=== PATIENT | male | born 1955 | race Caucasian/White ===

== ENCOUNTER 2021-11-09 08:17 | Outpatient (REF) | payer OTHER, SELFPAY ==
--- NOTE | ~2021-11-09 | FL_ITS ---
EXAMINATION: FL BARIUM SWALLOW CLINICAL INFORMATION: Dysphagia. COMPARISON: None. TECHNIQUE: Barium swallow examination is performed using fluoroscopic evaluation in addition to multiple fluoroscopic spot views. The patient is imaged both upright and prone and using both thick and thin sulfate along with effervescent granules. Fluoroscopy time: 2.0 minutes DAP: 14.615 Gycm2 Images: 55 FINDINGS: Following oral administration of thick barium in upright view and various positions, there is normal propagation of bolus from the oral cavity through the pharynx and esophagus and into the stomach without any evidence of obstruction, narrowing or stricture. On oral administration of barium-coated turkey, there is normal propagation of solid food from the oral cavity, esophagus and stomach. No intrinsic obstruction or extrinsic compression seen. On placing patient prone and oral administration of thin barium, there is good distention of the entire esophagus. There is no gastroesophageal reflux or hiatal hernia visualized. FL/FL barium swallow IMPRESSION: Unremarkable barium swallow exam in upright and lying positions.
== END 2021-11-09 08:18 | disposition home or self-care (01) ==
LOC: HO.XRAY 08:17
PROVIDERS: Visit Provider Internal Medicine Gastroenterology
DX: R13.10 Dysphagia, unspecified (principal)
CPT/HCPCS: 74220

== ENCOUNTER 2023-02-02 06:28 | Day surgery (SDC) | payer MEDICARE, SELFPAY ==
--- NOTE | 2023-02-01 08:51 | P.CONAN_ITS ---
Documented by User: Mariela Fried NP 02/01/23 09:03 HPI - Anesthesia Eval Consult details Narrative: 67yo M for Colonoscopy afib s/p rfa, no anticoag [facility] - Dr Toscano at [facility] Past Medical History Medical History (Updated 02/02/23 @ 06:40 by Lydia Coleman, RN) Atrial fibrillation Bilateral cataracts Elevated cholesterol HTN (hypertension) Pancolitis Ulcerative colitis Surgical History Surgical History (Updated 02/01/23 @ 06:27 by Lydia Coleman, RN) History of colonoscopy History of radiofrequency ablation procedure for cardiac arrhythmia Social History Social History Patient Tobacco Use Status: Former Tobacco user Use of substances other than those prescribed or required for medical reasons: No Are you DNR?: No Advance Directives: No Advance Directives Information Provided: Yes Recently lost weight without trying: No Nutrition Risks: No Nutritional Risk Meds Allergies Allergy/AdvReac Type Severity Reaction Status Date / Time atorvastatin [Lipitor] Allergy Unknown myalgias Verified 10/03/17 00:00 elevated CPK Home Medications Medication Instructions Recorded Confirmed Last Taken Type azathioprine 50 mg tablet 100 mg PO DAILY 02/01/23 02/02/23 Unknown History diltiazem HCl 180 mg 180 mg PO DAILY 02/01/23 02/02/23 Unknown History tablet,extended release 24 hr ([facility]) flecainide 100 mg tablet 200 mg PO DAILY PRN Atrial 02/01/23 02/02/23 Unknown History Fibrillation lisinopril 20 mg tablet 20 mg PO DAILY 02/01/23 02/02/23 Unknown History lorazepam 0.5 mg tablet 0.5 mg PO BEDTIME PRN Anxiety 02/01/23 02/02/23 Unknown History mesalamine 0.375 gram PO 02/01/23 Unknown History capsule,extended release 24 hr pravastatin 20 mg tablet 20 mg PO DAILY 02/01/23 02/02/23 02/02/23 History aspirin 81 mg tablet,delayed 81 mg PO DAILY 02/02/23 02/02/23 02/01/23 History release Exam Exam Date and Time: February 01, 2023 0851 Assessment and Plan Assessment Anesthesia Assessment: Chart Reviewed Documented by User: Ben Juarez MD 02/02/23 07:41 [facility] Past Medical History Medical History (Updated 02/02/23 @ 06:40 by Lydia Coleman RN) Atrial fibrillation Bilateral cataracts Elevated cholesterol HTN (hypertension) Pancolitis Ulcerative colitis Family History Family history of problems with anesthesia: No Surgical History Surgical History (Updated 02/01/23 @ 06:27 by Lydia Coleman RN) History of colonoscopy History of radiofrequency ablation procedure for cardiac arrhythmia History of Problems with Anesthesia: No Social History Social History Patient Tobacco Use Status: Former Tobacco user Use of substances other than those prescribed or required for medical reasons: No Are you DNR?: No Advance Directives: No Advance Directives Information Provided: Yes Recently lost weight without trying: No Nutrition Risks: No Nutritional Risk Meds Allergies Allergy/AdvReac Type Severity Reaction Status Date / Time atorvastatin [Lipitor] Allergy Unknown myalgias Verified 10/03/17 00:00 elevated CPK Home Medications Medication Instructions Recorded Confirmed Last Taken Type azathioprine 50 mg tablet 100 mg PO DAILY 02/01/23 02/02/23 Unknown History diltiazem HCl 180 mg 180 mg PO DAILY 02/01/23 02/02/23 Unknown History tablet,extended release 24 hr ([place]) flecainide 100 mg tablet 200 mg PO DAILY PRN Atrial 02/01/23 02/02/23 Unknown History Fibrillation lisinopril 20 mg tablet 20 mg PO DAILY 02/01/23 02/02/23 Unknown History lorazepam 0.5 mg tablet 0.5 mg PO BEDTIME PRN Anxiety 02/01/23 02/02/23 Unknown History mesalamine 0.375 gram PO 02/01/23 Unknown History capsule,extended release 24 hr pravastatin 20 mg tablet 20 mg PO DAILY 02/01/23 02/02/23 02/02/23 History aspirin 81 mg tablet,delayed 81 mg PO DAILY 02/02/23 02/02/23 02/01/23 History release Exam Airway Mallampati Class: I TM Dist: >3cm Neck ROM: Full Loose/Missing/Broken Teeth: Yes Heart: ok. afib, hr 108. Lungs: ok Assessment and Plan Assessment Anesthesia Assessment: Anesthesia Plan Discussed Final Anesthetic Review Family History of Problems with Anesthesia: No History of Problems with Anesthesia: No NPO: Yes ASA Class: III Final Preanesthetic Review: No Changes in Pt Med Stat, Meds/Allgs Chart Reviewed, Consent Obtained/Reviewed and Anes Risks/Benef Reviewed Patient Risk: Intermediate Procedure Risk: Low Anesthetic Plan Anesthetic Plan: MAC: and Agree w/ Assess. and Plan Disposition: Standard PACU
[2023-02-02 06:41] VITALS: BMI 27.1
[2023-02-02 06:49] VITALS: BP 159/96; PULSE 108; RESP 16; TEMP 36.1; O2SAT 98
[2023-02-02] MEDS: Lactated Ringers 1,000 ML 100 ML IVCONT (07:04)
--- NOTE | 2023-02-02 07:22 | MHC.SHP ---
Pre-Procedural Eval Section A Date of Service: 02/02/23 Section B Chief Complaint: Ulcerative (chronic) pancolitis without complicati Details of Present Illness: see H&P no changes Relevant Family History (Specify if Yes): No Relevant Social History: None Present Medications: see Short Stay Collaborative assessment Medical History: No relevant PMH History of Previous Operations: No relevant previous surgery Allergies: Allergies Allergy/AdvReac Type Severity Reaction Status Date / Time atorvastatin [Lipitor] Allergy Unknown myalgias Verified 10/03/17 00:00 elevated CPK Review of Systems Sugical H&P ROS: Negative: Constitution, Cardiovascular, Respiratory, Neurological, Psychiatric, Hem-Onc, Allergic/Immunologic, Gastrointestinal, Genitourinary, Musculoskeletal, Integumentary, Endocrine and Eyes/Ears/Nose/Throat Exam Surgical H&P Exam: Normal: HEENT, Normal: Heart, Normal: Lungs, Normal: Extremities, Normal: Abdomen, Normal: Skin and Normal: Neurological Plan Diagnosis/Plan: Unchanged I have reviewed the history and physical and performed a pertinent physical examination on my patient. No changes have occurred unless specified. Time Spent With Patient Time: Total time managing care of this patient today ____ minutes.
--- NOTE | 2023-02-02 07:26 | PC.NURSE ---
patient in afib stemp aware.
[2023-02-02 08:17] VITALS: BP 98/67; PULSE 93; RESP 18; TEMP 36.2; O2SAT 95
--- NOTE | 2023-02-02 08:20 | PM.OP ---
Brief Operative Note Date of Service: 02/02/23 Pre-op diagnosis: ulcerative colitis Post-op diagnosis: same Procedure: colonoscopy Surgeon: Issa Mayes Anesthesia: MAC Was an Assistant Auditor used for this Procedure?: No Estimated blood loss (mL): 5 Pathology: other Condition: stable Disposition: PACU
[2023-02-02 08:32] VITALS: BP 137/95; PULSE 95; RESP 18; TEMP 36.2; O2SAT 99
--- NOTE | 2023-02-02 13:28 | OP_ITS ---
DATE OF SERVICE: 02/02/2023 SURGEON: Issa Mayes MD INDICATIONS: Ulcerative colitis. PREOPERATIVE DIAGNOSIS: POSTOPERATIVE DIAGNOSIS: PROCEDURE PERFORMED: Colonoscopy to the cecum with biopsy. ESTIMATED BLOOD LOSS: COMPLICATIONS: ANESTHESIA: Monitored anesthesia care. ASSISTANTS: SPECIMENS: DESCRIPTION OF PROCEDURE: A history and physical was performed. The risks and benefits of the procedure were explained to the patient. Informed consent was obtained. The patient was placed in the left lateral decubitus position. A digital rectal exam was performed and was found to be normal. The Olympus pediatric video colonoscope was introduced into the rectum and advanced to the cecum without difficulty. The cecum was identified by transillumination, palpation, and identification of ileocecal valve. Examination was performed. The scope was removed. He tolerated the procedure well and was returned to the recovery area in stable condition. Abdominal wall pressure was used to assist in advancement of the scope due to looping in the sigmoid. FINDINGS: The cecum was normal biopsies were obtained beginning in the cecum extending approximately every 10 cm in all 4 quadrants from the cecum to the rectum. There was no evidence of active colitis. Pseudopolyps were noted mainly in the transverse and descending colon. There was mild sigmoid diverticulosis. Retroflexed examination was normal. IMPRESSION: Ulcerative colitis. RECOMMENDATION: Follow up the biopsy results. MD OLGA Valdez/JOSÉ / [id number] MTDD
== END 2023-02-02 08:55 | disposition home or self-care (01) ==
PROVIDERS: PCP Internal Medicine; Visit Provider Internal Medicine Gastroenterology
PROC: 0DJD8ZZ Inspection of Lower Intestinal Tract, Via Natural or Artificial Opening Endoscopic (ICD-10-PCS; CPT 45378; principal; 2023-02-02 07:30)
DX: K51.00 Ulcerative (chronic) pancolitis without complications (principal); K57.30 Diverticulosis of large intestine without perforation or abscess without bleeding; Z80.0 Family history of malignant neoplasm of digestive organs; K21.9 Gastro-esophageal reflux disease without esophagitis; I48.19 Other persistent atrial fibrillation; I10 Essential (primary) hypertension; E78.00 Pure hypercholesterolemia, unspecified; Z79.82 Long term (current) use of aspirin; Z79.899 Other long term (current) drug therapy; Z88.8 Allergy status to other drugs, medicaments and biological substances
CPT/HCPCS: 45380; 88305